=== PATIENT | male | born 1950 | race African-American/Black ===

== ENCOUNTER 2019-08-26 16:48 | Emergency (ER) | payer OTHER ==
[2019-08-26 17:16] LABS: ABSOLUTE NEUTROPHILS 6.6 thou/uL (1.4-8.2); BASOPHILS 1.3 % (0.0-2.0); EOSINOPHILS 0.7 % (0.0-3.0); HEMATOCRIT 27.2 % (42.0-52.0); HEMOGLOBIN 8.3 gm/dL (14.0-18.0); LYMPHOCYTES 31.4 % (24.0-44.0); MCH 28.8 pg (26.0-34.0); MCHC 30.5 g/dL (28.0-37.0); MCV 94.3 fL (80.0-100.0); MONOCYTES 9.5 % (1.0-8.0); PLATELET COUNT 285 thou/uL (150-400); POLYS 57.1 % (36.0-66.0); RBC 2.88 mil/uL (4.50-6.00); WBC 11.6 thou/uL (4.0-11.0)
[2019-08-26 17:28] LABS: APTT 40.2 Seconds (24.5-32.8); INR 1.2; PROTIME 12.7 Seconds (9.3-11.4)
[2019-08-26 17:30] LABS: ALBUMIN 1.4 g/dL (3.4-5.0); CALCIUM 7.2 mg/dL (8.5-10.1); CREATININE 5.6 mg/dL (0.7-1.3); TOTAL BILIRUBIN 0.4 mg/dL (<0.1-1.0); TOTAL PROTEIN 4.8 g/dL (6.4-8.2)
[2019-08-26 17:39] LABS: POTASSIUM 1.7 mmol/L (3.5-5.1)
== END 2019-08-26 17:25 | disposition short-term general hospital (02) ==
LOC: ER 16:48
PROVIDERS: Emergency Medicine
DX: I97.611 Postprocedural hemorrhage of a circulatory system organ or structure following cardiac bypass (principal); N18.6 End stage renal disease; Z99.2 Dependence on renal dialysis